=== PATIENT | female | born 1995 | race Caucasian/White ===

== ENCOUNTER 2020-06-16 03:14 | Emergency (ER) | payer BC ==
[~2020-06-16] VITALS: Ht 165 cm; Wt 90.7 kg
[2020-06-16 05:22] LABS: BILIRUBIN,URINE NEGATIVE (NEGATIVE); CLARITY,URINE CLEAR; COLOR,URINE YELLOW; GLUCOSE, URINE (UA) NEGATIVE (NEGATIVE); KETONES,URINE NEGATIVE (NEGATIVE); LEUKOCYTE ESTERASE ,URINE NEGATIVE (NEGATIVE); NITRITE,URINE NEGATIVE (NEGATIVE); PH,URINE 5.5 (5-9); PROTEIN,URINE NEGATIVE (NEGATIVE)
[2020-06-16 05:32] LABS: AMPHETAMINE SCREEN, URINE NEGATIVE (NEGATIVE); BARBITURATE SCREEN URINE NEGATIVE (NEGATIVE); BENZODIAZEPINES SCREEN URINE NEGATIVE (NEGATIVE); CANNABINOID SCREEN, URINE NEGATIVE (NEGATIVE); COCAINE SCREEN URINE NEGATIVE (NEGATIVE); METHADONE STAT NEGATIVE (NEGATIVE); METHAMPHETAMINE SCREEN URINE S NEGATIVE (NEGATIVE); OPIATE SCREEN URINE NEGATIVE (NEGATIVE); OXYCODONE STAT NEGATIVE (NEGATIVE); PROPOXYPHENE STAT NEGATIVE (NEGATIVE); TRICYCLIC ANTIDEPRESSANTS SCRE NEGATIVE (NEGATIVE)
[2020-06-16 05:33] LABS: BACTERIA,URINE TRACE /HPF
[2020-06-16] MEDS ORDERED: ALPR0.5T PO (05:35)
--- NOTE | 2020-06-16 05:35 | ED General ---
General Chief Complaint: Psych/Social Disorder Stated Complaint: HIGH HR, ANXIETY,DIZZINESS,FAMILY HX HEART ISSUES Source of Information: Patient History of Present Illness Date Seen by Provider: Jun 16, 2020 Time Seen by Provider: 04:14 Initial Comments PT ARRIVES VIA POV C/O ANXIETY STATES SHE HAS BEEN HAVING ISSUES WITH ANXIETY SINCE STARTING COLLEGE. PT IS NOW GETTING READY TO GRADUATE THIS SEMESTER, AND HAS BEEN DOING ALOT OF THINGS THIS WEEK REGARDING UPCOMING GRADUATION, END OF SEMESTER, PLANS FOR AFTER GRADUATION, ETC. AND STRESS HAS BEEN MORE THAN NORMAL. ALSO GETTING READY TO HAVE FIRST HOME FOOTBALL GAME OF SEASON AND SHE PLAYS IN [place], SO FIRST PERFORMANCE THIS YEAR. 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 STATES SHE TAKES A PILL ONCE OR TWICE A WEEK OR LESS--MAYBE EVEN ONE PILL EVERY 2 WEEKS SOMETIMES. HAS NOT BEEN TO CAMPUS CLINIC OR COUNSELING RECENTLY, AND NO UPCOMING APPOINTMENTS. STATES TONIGHT, SHE GOT UP TO GO TO THE BATHROOM AND WHEN SHE WAS WALKING BACK SHE GOT DIZZY AND HER HEART WAS RACING --LASTED 1 MINUTE. SHE BET HER HEAD OVER AND IT PASSED. STATES THIS SCARED HER AND SO SHE CAME HERE. HAS CUT OUT ALL CAFFEINE SOME TIME AGO, AND NO STIMULANT USE PT IS NOT HAVING ANY PALPITATIONS OR CHEST PAIN OR SHORTNESS OF BREATH OR DIZZINESS NOW. [facility] M[facility] TO [place], [place] Allergies and Home Medications Allergies Coded Allergies: No Known Drug Allergies (Unverified , 06/16/20) Home Medications Alprazolam 0.5 Mg Tablet, 0.5 MG PO BID Prescribed by: ERICA FLORES on 06/16/20 0535 Patient Home Medication List Home Medication List Reviewed: Yes Review of Systems Review of Systems Constitutional: see HPI; No chills, No diaphoresis; dizziness; No fever EENTM: no symptoms reported Respiratory: no symptoms reported Cardiovascular: see HPI, palpitations Gastrointestinal: no symptoms reported Genitourinary: no symptoms reported Musculoskeletal: no symptoms reported Skin: no symptoms reported Psychiatric/Neurological: See HPI, Anxiety; Denies Headache, Denies Numbness, Denies Paresthesia, Denies Seizure, Denies Tingling, Denies Weakness Hematologic/Lymphatic: No Symptoms Reported Immunological/Allergic: no symptoms reported Past Kanyryf-Xqigmv-[id number] Hx Past Med/Social Hx: Reviewed and Corrections made Patient Social History Alcohol Use: Denies Use Recreational Drug Use: No Smoking Status: Never a Smoker Recent Foreign Travel: No Contact w/Someone Who Travel: No Past Medical History Surgeries: No Respiratory: No Cardiac: No Neurological: No : No Female Reproductive Disorders: Denies Genitourinary: No Gastrointestinal: No Musculoskeletal: No Endocrine: No HEENT: No Cancer: No Psychosocial: Yes Anxiety Integumentary: No Blood Disorders: No Physical Exam Vital Signs Capillary Refill : Height, Weight, BMI Height: '" Weight: lbs. oz. kg; BMI Method: General Appearance: No Apparent Distress, WD/WN Neck: Normal Inspection Respiratory: Normal Breath Sounds, No Accessory Muscle Use, No Respiratory Distress Cardiovascular: Regular Rate, Rhythm, No Murmur, Normal Peripheral Pulses Gastrointestinal: Non Tender, Soft Extremity: Normal Inspection Neurologic/Psychiatric: Alert, Oriented x3, No Motor/Sensory Deficits, Normal Mood/Affect, analytical strategist II-XII Norm as Tested, Other (DOES NOT SEEM ANXIOUS NOW) Skin: Normal Color, Warm/Dry Progress/Results/Core Measures Suspected Sepsis SIRS Temperature: Pulse: Respiratory Rate: Blood Pressure / Mean: Results/Orders Lab Results Laboratory Tests Test 06/16/20 05:00 Range/Units Urine Color YELLOW Urine Clarity CLEAR Urine pH 5.5 5-9 Urine Specific [place] 1.025 H 1.016-1.022 Urine Protein NEGATIVE NEGATIVE Urine Glucose (UA) NEGATIVE NEGATIVE Urine Ketones NEGATIVE NEGATIVE Urine Nitrite NEGATIVE NEGATIVE Urine Bilirubin NEGATIVE NEGATIVE Urine Urobilinogen 0.2 < = 1.0 MG/DL Urine Leukocyte Esterase NEGATIVE NEGATIVE Urine RBC (Auto) NEGATIVE NEGATIVE Urine RBC NONE /HPF Urine WBC NONE /HPF Urine Squamous Epithelial Cells 10-25 H /HPF Urine Crystals NONE /LPF Urine Bacteria TRACE /HPF Urine Casts NONE /LPF Urine Mucus SMALL H /LPF Urine Culture Indicated NO Urine Opiates Screen NEGATIVE NEGATIVE Urine Oxycodone Screen NEGATIVE NEGATIVE Urine Methadone Screen NEGATIVE NEGATIVE Urine Propoxyphene Screen NEGATIVE NEGATIVE Urine Barbiturates Screen NEGATIVE NEGATIVE Ur Tricyclic Antidepressants Screen NEGATIVE NEGATIVE Urine Phencyclidine Screen NEGATIVE NEGATIVE Urine Amphetamines Screen NEGATIVE NEGATIVE Urine Methamphetamines Screen NEGATIVE NEGATIVE Urine Benzodiazepines Screen NEGATIVE NEGATIVE Urine Cocaine Screen NEGATIVE NEGATIVE Urine Cannabinoids Screen NEGATIVE NEGATIVE My Orders Orders - SANDRA,ERICA K DO Drug Screen Stat (Urine) (06/16/20 04:59) Ua Culture If Indicated (06/16/20 04:59) Urine Bedside (06/16/20 04:59) Alprazolam Tablet (Xanax Tablet) (06/16/20 05:45) Vital Signs/I&O Capillary Refill : Progress Note : Progress Note LONG DISCUSSION WITH PT--DO NOT FEEL THAT ADDITIONAL TESTS ARE WARRANTED AT THIS TIME WILL PRESCRIBE A FEW XANAX UNTIL SHE CAN GET INTO [facility] AND [facility]. DISCUSSED POSSIBLE NEED FOR DAILY MEDICATION FOR ANXIETY, AND PT IS VERY RECEPTIVE TO THAT. ADVISED HER TO DISCUSS THIS WITH [facility] PROVIDERS. Departure Impression Primary Impression: Anxiety Disposition: HOME, SELF-CARE Condition: Stable Departure-Patient Inst. Referrals: NO,LOCAL PHYSICIAN (PCP) Primary Care Physician MICHA DISLA MD Patient Instructions: Anxiety, Adult (DC), Generalized Anxiety Disorder (DC) Add. Discharge Instructions: HOME, REST FOLLOW UP WITH [facility] ON THURSDAY FOR FURTHER CARE All discharge instructions reviewed with patient and/or family. Voiced understanding. Scripts Alprazolam (Xanax) 0.5 Mg Tablet 0.5 MG PO BID for Anxiety, #2 TAB Prov: ERICA FLORES DO 06/16/20 ERICA FLORES DO Jun 16, 2020 05:35
[2020-06-16] MEDS ORDERED: ALPRAZolam 0.5 MG (XANAX) TAB PO SCH (05:45)
[2020-06-17 04:08] VITALS: BP 125/92
== END 2020-06-16 05:43 | disposition home or self-care (01) ==
LOC: ER 03:23
DX: F41.9 Anxiety disorder, unspecified (principal)
CPT/HCPCS: 80306; 81000; 84703; 99283